=== PATIENT | female | born 1990 ===

== ENCOUNTER → 2023-01-30 14:00 | Outpatient (CLI) | payer BC, SELFPAY ==
--- NOTE | ~2023-01-30 | US_ITS ---
EXAMINATION: US OB <= 14 weeks fetus DATE: 01/30/2023 14:28 INDICATION: Assess viability during first trimester TECHNIQUE: Real-time pelvic ultrasound utilizing both a transvaginal and transabdominal probe was pe rformed. The interpreting radiologist was not present for the study. COMPARISON: None. FINDINGS: The uterus measures 8.4 x 6.3 x 6.5 cm. There is an intrauterine gestational sac. A yolk sac and fet al pole are identified. The crown rump length measures 2.6 cm, which correlates with an estimated ges tational age of 9 weeks and 2 days. heart motion is identified measuring 167 beats per minute ( bpm) by M-mode Doppler. 10 x 4 x 4 mm anechoic subchorionic hematoma. The right ovary measures 2.8 x 1.4 x 2.4 cm. The left ovary measures 2.7 x 1.7 x 2.6 cm. After flow i dentified at both ovaries on color Doppler. There is no free fluid in the pelvis. IMPRESSION: 1. Single living fetus with heart rate of 167 bpm. 2. Gestational age by ultrasound of 9 weeks 2 day(s) +/- 6 day(s) with ultrasound estimated date of delivery ([facility]) of 09/02/2023. 3. Small subchorionic hematoma. Reviewed, dictated and finalized at location B. IMPRESSION: 1. Single living fetus with heart rate of 167 bpm. 2. Gestational age by ultrasound of 9 weeks 2 day(s) +/- 6 day(s) with ultraso und estimated date of delivery ([facility]) of 09/02/2023. 3. Small subchorionic hematoma.
== END ==
PROVIDERS: PCP Family Medicine Adolescent Medicine; Visit Provider Advanced Practice Midwife
DX: O36.80X0 Pregnancy with inconclusive fetal viability, not applicable or unspecified (principal); O46.91 Antepartum hemorrhage, unspecified, first trimester; Z3A.09 9 weeks gestation of pregnancy
CPT/HCPCS: 76801

== ENCOUNTER → 2023-05-27 08:48 | Outpatient (CLI) | payer BC, SELFPAY ==
--- NOTE | ~2023-05-27 | US_ITS ---
US right upper quadrant INDICATION: Cholestasis with PROCEDURE: Realtime right upper abdominal ultrasound. COMPARISON: No prior studies for comparison. FINDINGS: The pancreas is normal without focal mass or pancreatic ductal dilation. Liver echotexture is normal without focal mass or intrahepatic biliary dilatation. There is normal directional flow i n the portal vein. The gallbladder is normal without stones, gallbladder wall thickening or pericholecystic fluid. Comm on bile duct measures 4 mm. No sonographic Villarreal's sign. IMPRESSION: 1: Normal limited abdominal ultrasound. Reviewed, dictated and finalized at location A.
== END ==
DX: O26.612 Liver and biliary tract disorders in pregnancy, second trimester (principal); K83.1 Obstruction of bile duct; O09.91 Supervision of high risk pregnancy, unspecified, first trimester; O16.2 Unspecified maternal hypertension, second trimester; Z3A.00 Weeks of gestation of pregnancy not specified
CPT/HCPCS: 76705